=== PATIENT | female | born 1945 | race Caucasian/White ===

== ENCOUNTER 2018-06-16 08:43 | Observation (INO) | payer MEDICARE, OTHER ==
[2018-06-16 09:32] LABS: ADD MAN DIFF? NO
[2018-06-16 09:38] LABS: WHITE BLOOD COUNT 6.3 10^3/ul (4.8-10.8)
[2018-06-16 09:38] LABS: BASOPHILS % 0.6 % (0.0-2.0); EOSINOPHILS # 0.2 10^3/ul (0.0-0.5); EOSINOPHILS % 2.8 % (0.0-7.0); HEMATOCRIT 35.2 % (37.0-47.0); LYMPHOCYTES % 30.8 % (15.0-51.0); MEAN CORPUSCULAR HEMOGLOBIN 26.4 pg (29.0-33.0); MEAN CORPUSCULAR HGB CONC 31.3 g/dl (32.0-37.0); MEAN CORPUSCULAR VOLUME 84.6 fl (82.0-101.0); MEAN PLATELET VOLUME 9.8 fl (7.4-10.4); MONOCYTE # 0.8 10^3/ul (0.3-0.9); NEUTROPHIL # 3.4 10^3/ul (1.6-7.5); NEUTROPHILS % 53.6 % (39.0-77.0); PLATELET COUNT 183 10^3/UL (140-415); RED BLOOD COUNT 4.16 10^6/ul (4.20-5.40); RED CELL DISTRIBUTION WIDTH 17.5 % (11.5-14.5)
[2018-06-16 09:51] LABS: ALANINE AMINOTRANSFERASE 18 IU/L (13-69); ALBUMIN 4.4 g/dl (3.3-4.9); ALBUMIN/GLOBULIN RATIO 1.33; ALKALINE PHOSPHATASE 35 IU/L (42-121); ANION GAP 12 (8-16); ASPARTATE AMINO TRANSFERASE 20 IU/L (15-46); BILIRUBIN,INDIRECT 0.4 mg/dl (0-1.1); BILIRUBIN,TOTAL 0.4 mg/dl (0.2-1.3); BLOOD UREA NITROGEN 29 mg/dl (7-20); CALCIUM 9.8 mg/dl (8.4-10.2); CARBON DIOXIDE 27 mmol/L (21-31); CHLORIDE 108 mmol/L (97-110); CHOL/HDL RATIO 2.5 RATIO; CHOLESTEROL 136 mg/dl (100-200); CREATININE 1.06 mg/dl (0.44-1.00); GLUCOSE 138 mg/dl (70-220); HDL CHOLESTEROL 53 mg/dl (33-92); LDL CHOLESTEROL,CALCULATED 51 mg/dl; SODIUM 142 mmol/L (135-144); TOTAL PROTEIN 7.7 g/dl (6.1-8.1); TRIGLYCERIDES 161 mg/dl (0-149)
[2018-06-16 09:54] LABS: INR 0.98; PROTIME 13.1 Sec (11.9-14.9)
[2018-06-16 09:55] LABS: PARTIAL THROMBOPLASTIN TIME 31.5 Sec (25.0-35.0)
[2018-06-16] MEDS ORDERED: LIDOCAINE 1% (MDV) 10 ML INJ (10:01)
[2018-06-16] MEDS ORDERED: IODIXANOL LOCM 100 ML BTL (10:01)
[2018-06-16] MEDS ORDERED: FENTAnyl 50 MCG/ML VIAL (10:02)
[2018-06-16] MEDS ORDERED: MIDAZOLAM 1 MG/ML 2 ML INJ (10:02)
[2018-06-16] MEDS ORDERED: BIVALIRUDIN 250MG /NS 50 ML 50 ML IVPB (10:41)
[2018-06-16] MEDS ORDERED: NITROGLYCERIN (IC) 100 MCG/ML INJ (11:04)
[2018-06-16] MEDS ORDERED: ASPIRIN 325 MG TAB (11:32)
[2018-06-16] MEDS ORDERED: morphine 2 MG INJ IV (12:00)
[2018-06-16] MEDS ORDERED: AL HYDROX/MG HYDROX/SIMETH 30 ML CUP PO (12:00)
[2018-06-16] MEDS ORDERED: ONDANSETRON 4 MG INJ IV (12:00)
[2018-06-16] MEDS ORDERED: OXYCODONE/ACETAMINOPHEN (5/325) TAB PO ×2 (12:00)
[2018-06-16] MEDS ORDERED: GLUCAGON 1 MG INJ IM (12:30)
[2018-06-16] MEDS ORDERED: DEXTROSE 50% 50 ML SYRINGE IV ×2 (12:30)
[2018-06-16] MEDS ORDERED: GLUCOSE GEL 15 GRAM TUBE PO ×2 (12:30)
[2018-06-16] MEDS ORDERED: GLUCOSE GEL 15 GRAM TUBE BUCCAL (12:30)
[2018-06-16] MEDS: ACETAMINOPHEN 325 MG TAB PO (12:32)
[2018-06-16 13:18] LABS: HEMOGLOBIN A1C 7.6 % (0-5.9)
[2018-06-16] MEDS: INSULIN ASPART [NOVOLOG] 3 ML PEN SC ×3 (13:28→20:39)
[2018-06-16] MEDS: FAMOTIDINE 20 MG TAB PO (20:15)
[2018-06-16] MEDS: SOD CHLORIDE 0.9% 1,000 ML IV ×3 (20:15→20:40)
[2018-06-16] MEDS ORDERED: RANITIDINE 150 MG TAB PO (21:00)
[2018-06-16] MEDS ORDERED: glipiZIDE 10 MG TAB PO (21:00)
[2018-06-16] MEDS ORDERED: ROSUVASTATIN CALCIUM 40 MG XX (21:00)
[2018-06-16] MEDS: LORAZEPAM 2 MG INJ IV (22:08)
[2018-06-17] MEDS: ACCU-CHEK XX (02:15)
[2018-06-17 03:32] LABS: ADD MAN DIFF? NO
[2018-06-17 03:37] LABS: WHITE BLOOD COUNT 6.8 10^3/ul (4.8-10.8)
[2018-06-17 03:37] LABS: BASOPHILS % 0.4 % (0.0-2.0); EOSINOPHILS # 0.1 10^3/ul (0.0-0.5); EOSINOPHILS % 2.1 % (0.0-7.0); HEMATOCRIT 32.6 % (37.0-47.0); HEMOGLOBIN 10.1 g/dl (12.0-16.0); LYMPHOCYTES # 2.1 10^3/ul (0.8-2.9); LYMPHOCYTES % 31.4 % (15.0-51.0); MEAN CORPUSCULAR VOLUME 83.8 fl (82.0-101.0); MEAN PLATELET VOLUME 9.6 fl (7.4-10.4); MONOCYTE # 0.7 10^3/ul (0.3-0.9); MONOCYTES % 9.9 % (0.0-11.0); NEUTROPHIL # 3.8 10^3/ul (1.6-7.5); NEUTROPHILS % 56.1 % (39.0-77.0); PLATELET COUNT 148 10^3/UL (140-415); RED BLOOD COUNT 3.89 10^6/ul (4.20-5.40); RED CELL DISTRIBUTION WIDTH 17.5 % (11.5-14.5)
[2018-06-17 03:56] LABS: ALANINE AMINOTRANSFERASE 13 IU/L (13-69); ALBUMIN 3.4 g/dl (3.3-4.9); ALBUMIN/GLOBULIN RATIO 1.09; ALKALINE PHOSPHATASE 25 IU/L (42-121); ANION GAP 9 (8-16); ASPARTATE AMINO TRANSFERASE 20 IU/L (15-46); BILIRUBIN,INDIRECT 0.2 mg/dl (0-1.1); BILIRUBIN,TOTAL 0.2 mg/dl (0.2-1.3); BLOOD UREA NITROGEN 27 mg/dl (7-20); CALCIUM 9.1 mg/dl (8.4-10.2); CARBON DIOXIDE 25 mmol/L (21-31); CHLORIDE 108 mmol/L (97-110); CHOLESTEROL 133 mg/dl (100-200); CREATININE 1.01 mg/dl (0.44-1.00); GLUCOSE 175 mg/dl (70-220); HDL CHOLESTEROL 44 mg/dl (33-92); LDL CHOLESTEROL,CALCULATED 52 mg/dl; MAGNESIUM 1.7 mg/dl (1.7-2.5); POTASSIUM 4.1 mmol/L (3.5-5.1); SODIUM 138 mmol/L (135-144); TOTAL PROTEIN 6.5 g/dl (6.1-8.1); TRIGLYCERIDES 183 mg/dl (0-149)
[2018-06-17 04:03] LABS: B-TYPE NATRIURETIC PEPTIDE 1180 PG/ML (0-125)
[2018-06-17 04:21] LABS: FREE T4 (FREE THYROXINE) 0.88 ng/dl (0.78-2.44)
[2018-06-17] MEDS: INSULIN ASPART [NOVOLOG] 3 ML PEN SC (07:48)
[2018-06-17] MEDS: CLOPIDOGREL 75 MG TAB PO (08:48)
[2018-06-17] MEDS: LISINOPRIL 20 MG TAB PO (08:48)
[2018-06-17] MEDS: ASPIRIN (EC) 81 MG TAB PO (08:48)
[2018-06-17] MEDS: PIOGLITAZONE 30 MG TAB PO (08:48)
[2018-06-17] MEDS ORDERED: CLOPIDOGREL 75 MG TAB PO (09:00)
[2018-06-17] MEDS: [UNRECOGNIZED DRUG - REMARK] XX (09:19)
== END 2018-06-17 10:40 | disposition home or self-care (01) ==
LOC: CCL 08:43 → SDS 08:43 → CCL 11:41 → REC 11:42 → ICU 19:27
PROVIDERS: Internal Medicine Interventional Cardiology
DX: I25.119 Atherosclerotic heart disease of native coronary artery with unspecified angina pectoris (principal); Z95.1 Presence of aortocoronary bypass graft; Z95.5 Presence of coronary angioplasty implant and graft; E11.51 Type 2 diabetes mellitus with diabetic peripheral angiopathy without gangrene; I12.9 Hypertensive chronic kidney disease with stage 1 through stage 4 chronic kidney disease, or unspecified chronic kidney disease; E11.22 Type 2 diabetes mellitus with diabetic chronic kidney disease; N18.3 Chronic kidney disease, stage 3 (moderate); E78.5 Hyperlipidemia, unspecified; I42.9 Cardiomyopathy, unspecified
CPT/HCPCS: 36246; 75710; 80053; 80061; 82962; 83036; 83735; 83880; 84439; 84443; 85025; 85610; 85730; 87081; 93005; 93459; 99217

== ENCOUNTER 2019-03-02 08:31 | Day surgery (SDC) | payer MEDICARE, OTHER ==
[2019-03-02 09:12] LABS: ADD MAN DIFF? NO
[2019-03-02 09:13] LABS: BASOPHIL # 0.1 10^3/ul (0.0-0.1); BASOPHILS % 0.8 % (0.0-2.0); EOSINOPHILS # 0.2 10^3/ul (0.0-0.5); EOSINOPHILS % 2.8 % (0.0-7.0); HEMATOCRIT 36.3 % (37.0-47.0); HEMOGLOBIN 11.1 g/dl (12.0-16.0); LYMPHOCYTES # 1.8 10^3/ul (0.8-2.9); LYMPHOCYTES % 26.8 % (15.0-51.0); MEAN CORPUSCULAR HEMOGLOBIN 24.3 pg (29.0-33.0); MEAN CORPUSCULAR HGB CONC 30.6 g/dl (32.0-37.0); MEAN CORPUSCULAR VOLUME 79.4 fl (82.0-101.0); MONOCYTE # 0.6 10^3/ul (0.3-0.9); MONOCYTES % 9.6 % (0.0-11.0); NEUTROPHIL # 3.9 10^3/ul (1.6-7.5); NEUTROPHILS % 59.7 % (39.0-77.0); PLATELET COUNT 204 10^3/UL (140-415); RED BLOOD COUNT 4.57 10^6/ul (4.20-5.40); RED CELL DISTRIBUTION WIDTH 15.9 % (11.5-14.5)
[2019-03-02 09:13] LABS: WHITE BLOOD COUNT 6.5 10^3/ul (4.8-10.8)
[2019-03-02 09:34] LABS: ALANINE AMINOTRANSFERASE 9 IU/L (13-69); ALBUMIN 4.7 g/dl (3.3-4.9); ALBUMIN/GLOBULIN RATIO 1.17; ALKALINE PHOSPHATASE 66 IU/L (42-121); ANION GAP 12 (5-13); ASPARTATE AMINO TRANSFERASE 23 IU/L (15-46); BILIRUBIN,INDIRECT 0.2 mg/dl (0-1.1); BILIRUBIN,TOTAL 0.2 mg/dl (0.2-1.3); CARBON DIOXIDE 28 mmol/L (21-31); CHLORIDE 101 mmol/L (97-110); CHOL/HDL RATIO 2.8 RATIO; CHOLESTEROL 151 mg/dl (100-200); CREATINE KINASE 84 IU/L (23-200); GLUCOSE 170 mg/dl (70-220); HDL CHOLESTEROL 53 mg/dl (33-92); INR 0.94; LDL CHOLESTEROL,CALCULATED 58 mg/dl; POTASSIUM 4.4 mmol/L (3.5-5.1); PROTIME 12.7 Sec (11.9-14.9); SODIUM 141 mmol/L (135-144); TOTAL PROTEIN 8.7 g/dl (6.1-8.1); TRIGLYCERIDES 200 mg/dl (0-149)
[2019-03-02 09:35] LABS: PARTIAL THROMBOPLASTIN TIME 32.3 Sec (23.0-35.0)
[2019-03-02 09:41] LABS: BLOOD UREA NITROGEN 22 mg/dl (7-20); CALCIUM 10.3 mg/dl (8.4-10.2); CREATININE 1.11 mg/dl (0.44-1.00)
[2019-03-02 09:46] LABS: CK INDEX 0.8; CK-MB 0.65 ng/ml (0.0-2.4); TROPONIN-I < 0.012 ng/ml (0.000-0.120)
[2019-03-02] MEDS ORDERED: LIDOCAINE 1% (MDV) 20 ML INJ (10:21)
[2019-03-02] MEDS ORDERED: FENTAnyl 50 MCG/ML VIAL (10:21)
[2019-03-02] MEDS ORDERED: MIDAZOLAM 1 MG/ML 2 ML INJ (10:21)
[2019-03-02] MEDS ORDERED: IODIXANOL LOCM 100 ML BTL (11:21)
[2019-03-02] MEDS ORDERED: NITROGLYCERIN (IC) 100 MCG/ML INJ (11:21)
[2019-03-02] MEDS ORDERED: IOHEXOL 350MG/ML 50 ML BTL (11:21)
[2019-03-02] MEDS ORDERED: BIVALIRUDIN 250MG /NS 50 ML 50 ML IVPB (11:21)
[2019-03-02] MEDS ORDERED: CLOPIDOGREL 300 MG TAB (11:35)
[2019-03-02] MEDS ORDERED: morphine 2 MG INJ IV (12:00)
[2019-03-02] MEDS ORDERED: ACETAMINOPHEN 325 MG TAB PO (12:00)
[2019-03-02] MEDS ORDERED: OXYCODONE/ACETAMINOPHEN (5/325) TAB PO (12:00)
[2019-03-02] MEDS ORDERED: AL HYDROX/MG HYDROX/SIMETH 30 ML CUP PO (12:00)
[2019-03-02] MEDS ORDERED: ONDANSETRON 4 MG INJ IV (12:00)
[2019-03-02] MEDS ORDERED: GLUCOSE GEL 15 GRAM TUBE BUCCAL (12:30)
[2019-03-02] MEDS ORDERED: GLUCAGON 1 MG INJ IM (12:30)
[2019-03-02] MEDS ORDERED: DEXTROSE 50% 50 ML SYRINGE IV ×2 (12:30)
[2019-03-02] MEDS ORDERED: GLUCOSE GEL 15 GRAM TUBE PO ×2 (12:30)
[2019-03-02] MEDS: SOD CHLORIDE 0.9% 1,000 ML IV (12:34)
[2019-03-02 12:39] LABS: HEMOGLOBIN A1C 9.3 % (0-5.9)
[2019-03-02] MEDS ORDERED: ATROPINE 1 MG/10 ML SYRINGE (14:16)
[2019-03-02] MEDS: INSULIN ASPART [NOVOLOG] 3 ML PEN SC ×3 (15:30→21:50)
[2019-03-02] MEDS ORDERED: glipiZIDE 10 MG TAB PO (21:00)
[2019-03-02] MEDS: RANITIDINE 150 MG TAB PO (21:46)
[2019-03-02] MEDS: FERROUS SULFATE (EC) 325 MG TAB PO (21:46)
[2019-03-02] MEDS: ROSUVASTATIN CALCIUM 40 MG TABLET PO (23:52)
[2019-03-03] MEDS: ACCU-CHEK XX (02:00)
[2019-03-03 05:18] LABS: ADD MAN DIFF? NO
[2019-03-03 05:32] LABS: WHITE BLOOD COUNT 6.4 10^3/ul (4.8-10.8)
[2019-03-03 05:32] LABS: BASOPHILS % 0.5 % (0.0-2.0); EOSINOPHILS # 0.2 10^3/ul (0.0-0.5); EOSINOPHILS % 2.5 % (0.0-7.0); HEMATOCRIT 31.1 % (37.0-47.0); HEMOGLOBIN 9.7 g/dl (12.0-16.0); LYMPHOCYTES # 1.6 10^3/ul (0.8-2.9); LYMPHOCYTES % 25.2 % (15.0-51.0); MEAN CORPUSCULAR HEMOGLOBIN 25.2 pg (29.0-33.0); MEAN CORPUSCULAR HGB CONC 31.2 g/dl (32.0-37.0); MEAN CORPUSCULAR VOLUME 80.8 fl (82.0-101.0); MEAN PLATELET VOLUME 10.1 fl (7.4-10.4); MONOCYTE # 0.7 10^3/ul (0.3-0.9); MONOCYTES % 10.9 % (0.0-11.0); NEUTROPHIL # 3.9 10^3/ul (1.6-7.5); NEUTROPHILS % 60.6 % (39.0-77.0); PLATELET COUNT 176 10^3/UL (140-415); RED BLOOD COUNT 3.85 10^6/ul (4.20-5.40); RED CELL DISTRIBUTION WIDTH 15.8 % (11.5-14.5)
[2019-03-03 05:54] LABS: ANION GAP 5 (5-13); BLOOD UREA NITROGEN 26 mg/dl (7-20); CALCIUM 9.5 mg/dl (8.4-10.2); CARBON DIOXIDE 27 mmol/L (21-31); CHLORIDE 109 mmol/L (97-110); CHOL/HDL RATIO 2.8 RATIO; CHOLESTEROL 110 mg/dl (100-200); GLUCOSE 177 mg/dl (70-220); HDL CHOLESTEROL 39 mg/dl (33-92); LDL CHOLESTEROL,CALCULATED 37 mg/dl; POTASSIUM 4.4 mmol/L (3.5-5.1); SODIUM 141 mmol/L (135-144); TRIGLYCERIDES 172 mg/dl (0-149)
[2019-03-03] MEDS: INSULIN ASPART [NOVOLOG] 3 ML PEN SC (07:50)
[2019-03-03] MEDS: CLOPIDOGREL 75 MG TAB PO (08:14)
[2019-03-03] MEDS: ASPIRIN (EC) 81 MG TAB PO (08:14)
[2019-03-03] MEDS: FERROUS SULFATE (EC) 325 MG TAB PO (08:14)
[2019-03-03] MEDS: PIOGLITAZONE 30 MG TAB PO (08:14)
[2019-03-03] MEDS: OXYCODONE/ACETAMINOPHEN (5/325) TAB PO (08:34)
[2019-03-03] MEDS ORDERED: ASPIRIN 81 MG TAB PO (09:00)
[2019-03-03] MEDS ORDERED: CLOPIDOGREL 75 MG TAB PO (09:00)
[2019-03-03] MEDS: LISINOPRIL 20 MG TAB PO (09:00)
== END 2019-03-03 11:43 | disposition home or self-care (01) ==
LOC: CCL 08:31 → SDS 08:31 → CCL 03-03 11:43 → ICU 14:11 → SDS 14:11 → CCL 08:31 → ICU 18:04
DX: I25.10 Atherosclerotic heart disease of native coronary artery without angina pectoris (principal); I73.9 Peripheral vascular disease, unspecified; E11.9 Type 2 diabetes mellitus without complications; I12.9 Hypertensive chronic kidney disease with stage 1 through stage 4 chronic kidney disease, or unspecified chronic kidney disease; N18.3 Chronic kidney disease, stage 3 (moderate); E78.5 Hyperlipidemia, unspecified; D64.9 Anemia, unspecified; Z79.84 Long term (current) use of oral hypoglycemic drugs
CPT/HCPCS: 80048; 80053; 80061; 82550; 82553; 82962; 83036; 84484; 85025; 85610; 85730; 87081; 93005; 93458